=== PATIENT | female | born 1945 | race Two or more races ===

== ENCOUNTER 2021-11-26 12:42 | Emergency (ER) | payer MEDICARE, OTHER ==
[~2021-11-26] VITALS: Ht 154.9 cm; Wt 68.0 kg
--- NOTE | 2021-11-26 13:30 | NUR ---
BIBDAUGHTER C/O COUGH X 5 DAYS. IN ROOM AIR AND DENIES SOB. OXYGEN SATURATION IN ROOM AIR IS AT 98%. RESPIRATION REGULAR AND UNLABORED. WILL CONTINUE TO MONITOR THE PATIENT.
--- NOTE | 2021-11-26 13:40 | NUR ---
THE PATIENT REFUSED COVID SWABS TO BE DONE DESPITE EXPLAINING RISKS AND BENEFITS. Addendum: 11/26/21 at [address] RENA COTTON.
--- NOTE | 2021-11-26 14:47 | NUR ---
Patient discharged to home in stable condition. Written and verbal after care instructions given. Patient verbalizes understanding of instruction.
[2021-11-26 14:48] VITALS: BP 132/75
== END 2021-11-26 14:48 | disposition home or self-care (01) ==
LOC: ER 13:18
DX: J06.9 Acute upper respiratory infection, unspecified (principal); Z20.822 Contact with and (suspected) exposure to COVID-19; I10 Essential (primary) hypertension
CPT/HCPCS: 71045-TC